=== PATIENT | male | born 1970 | race Caucasian/White ===

== ENCOUNTER 2021-07-16 18:17 | Emergency (ER) | payer OTHER, SELFPAY ==
--- NOTE | ~2021-07-16 | US_ITS ---
EXAMINATION: US VENOUS ULTRASOUND WITH DOPPLER LOWER EXTREMITY, LEFT CLINICAL INFORMATION: Swelling and pain COMPARISON: None TECHNIQUE: Ultrasound of the deep veins is performed from the hip to the calf with compression sonography and color and pulse Doppler assessment. Spectral analysis with color-flow imaging is performed. FINDINGS: There is normal venous compression and respiratory variation and augmentation seen in the left common femoral, superficial femoral and greater saphenous vein. There is noncompressible thrombus visualized in the popliteal vein extending inferiorly into the posterior tibial and peroneal veins. There is mild superficial calf edema. No Aguilar's cyst seen. If the patient's symptoms persist, followup ultrasound in 5 days 7 days might be of value to exclude proximal propagation from a non-visualized calf vein. US/US venous duplex LE LT IMPRESSION: Positive DVT left popliteal vein extending to the posterior tibial and peroneal veins. No Aguilar's cyst seen. There is mild calf edema.
[2021-07-16 18:23] VITALS: BP 165/93; PULSE 84; RESP 18; TEMP 36; O2SAT 97; BMI 34.9
[2021-07-16 18:34] LABS: MANUAL DIFF FLAG NO
[2021-07-16 18:37] LABS: Basophils Percent Auto 0.4 % (0-2); Eosinophils Absolute Auto 0.3 X10*3/uL (0.0-0.4); Eosinophils Percent Auto 3.5 % (0-4); Hematocrit 41.3 % (42.0-52.0); Hemoglobin 14.1 g/dl (14.0-18.0); Imm Gran Abs Auto 0.04 X10*3/uL (0.00-0.03); Imm Gran Pct Auto 0.5 % (0.0-0.4); Lymphocytes Absolute Auto 1.3 X10*3/uL (1.2-4.9); Lymphocytes Percent Auto 16.6 % (20-40); Mean Corpuscular HGB Conc 34.1 g/dl (31.0-36.0); Mean Corpuscular Hemoglobin 31.1 pg (27.0-33.0); Mean Platelet Volume 9.3 fL (9.4-12.4); Monocytes Absolute Auto 0.9 X10*3/uL (0.1-1.2); Neutrophils Absolute Auto 5.3 x10*3/uL (2.0-8.3); Platelet Count 125 X10*3/uL (160-400); Red Blood Count 4.54 X10*6/uL (4.60-5.80); Red Cell Distribution Width 12.8 % (11.0-16.0); White Blood Count 7.8 X10*3/uL (4.8-10.8)
[2021-07-16 18:53] LABS: Anion Gap 13 (12-20); Blood Urea Nitrogen 8 mg/dL (9-16); Calcium 9.6 mg/dL (8.4-10.2); Carbon Dioxide 24 mmol/L (22-29); Chloride 107 mmol/L (96-108); Estimated Glomerular Filt Rate > 60; Glucose Random 87 mg/dL (60-115); Potassium 4.1 mmol/L (3.3-5.1); Sodium 140 mmol/L (135-145)
[2021-07-16 19:33] LABS: INTERNATIONAL NORM RATIO 1.2 (0.9-1.1); Prothrombin Time 14.1 SEC (9.9-13.0)
--- NOTE | 2021-07-16 20:09 | ED_ITS ---
HPI - Extremity Problem General Chief complaint: General Medical Stated complaint: doctor told patient to come in possible blood clot Time Seen by Provider: 07/16/21 18:34 Source: patient Mode of arrival: ambulatory Limitations: no limitations History of Present Illness HPI Narrative: 51-year-old male who denies any medical history presenting to the ED with complaints of left leg pain/swelling/redness for the past 4 days worse today. Reports that he has had increased prolonged sitting. Although denies ever mitchell ving this in the past. Denies any recent travel on a long plane/train/airplane ride, denies history of DVT or PE, recent surgery or procedure, hypercoagulation disorder that he is aware of, PVD disease, history of cancer that he is aware of, history of gout, or recent illness. He denies any dizziness, headaches, chest pain or shortness of breath, dyspnea on exertion, orthopnea, palpitations, paresthesias or any other symptoms complaints or concerns at this time. He was seen at the urgent care prior to arrival and sent here to rule out DVT. MD Complaint: extremity pain and extremity swelling Onset (ago): day(s) (4) Pain Consistency: constant Location: left and lower extremity Quality: burning and aching Radiation: distal Relieving factors: nothing Exacerbating factors: weight bearing, walking and palpation Associated symptoms: denies other symptoms Context: immobilization (Prolonged sitting) Related Data Previous Rx's Medication Instructions Recorded apixaban 5 mg tablet (Eliquis) 5 mg PO BID #90 tab 07/16/21 cephalexin 500 mg capsule 500 mg PO Q6H 10 Days #40 cap 07/16/21 doxycycline hyclate 100 mg tablet 100 mg PO BID 10 Days #20 tab 07/16/21 Allergies Allergy/AdvReac Type Severity Reaction Status Date / Time bupropion [From Wellbutrin] Allergy Mild Insomnia Verified 07/16/21 18:23 Review of Systems Review of Systems: Constitutional : No Weight loss, No Fever, No Chills, No Night Sweats, No Fatigue, No Malaise ENT/Mouth : No Hearing loss, No Ear Pain, No Nasal Congestion, No Sinus Pain, No Hoarseness, No sore throat, No Rhinorrhea, No Swallowing Difficulty Eyes: No Eye Pain, No Swelling, No Redness, No Foreign Body, No Discharge, No Vision Changes Cardiovascular : No Chest Pain, No SOB, No Dyspnea on Exertion, No Orthopnea, No Edema, No Palpitations Respiratory : No Cough, No Sputum, No Wheezing, No Smoke Exposure, No Dyspnea Gastrointestinal : No Nausea, No Vomiting, No Diarrhea, No Constipation, No abdominal Pain, No Hematochezia, No Melena Genitourinary : no irregular bleeding, No Dysuria, No Urinary Frequency, No Hematuria, No Urinary Incontinence, No Urgency, No Flank Pain, No Urinary Flow Changes, No Hesitancy Musculoskeletal : + left lower extremity pain/swelling/redness, No joint pain, No Myalgias Skin : No Skin Lesions, No rash Neuro : No Weakness, No Numbness, No Paresthesias, No Loss of Consciousness, No Dizziness, No Headache Psych : No Anxiety/Panic, No Depression, No SI/HI/AH/VH, No Social Issues, Heme/Lymph: No Bruising, No Bleeding,No Lymphadenopathy Endocrine : No Polyuria, No Polydipsia, No Temperature Intolerance Yes all other systems are reviewed and are negative [facility] Past Medical History Attestation statement: The following information was validated with the patient. Social History Social History Advance Directives: No Advance Directives Information Provided: No Physical Exam Vital Signs: Vital Signs: Last Vital Signs Temp 96.8 F 07/16/21 18:23 Pulse 84 07/16/21 18:23 Resp 18 07/16/21 18:23 BP 165/93 H 07/16/21 18:23 Pulse Ox 97 07/16/21 18:23 BMI result Body Mass Index 34.9 vital signs have been reviewed as normal and appeared to be correct. Blood pressure normal. Heart rate normal. Respiration rate normal. Temperature normal. Oxygen saturation normal. Appearance: Alert. Oriented X3. No acute distress. Head: Normal external exam. Normocephalic. Atraumatic. Eyes: PERRLA. EOMI. Conjunctiva and sclera normal. Eyelids normal. ENT: Pharynx normal. Uvula midline. Moist mucous membranes. No lesions/ulcerations or masses noted on the tongue. Normal voice. No trismus noted. No drooling noted. No muffled voice noted. Neck: Normal inspection. Neck supple. FROM. No adenopathy. Thyroid Normal. No meningeal signs. CVS: Normal heart rate and rhythm. Heart sound normal. Pulses normal throughout. No murmurs/rales/gallops. Respiratory: No respiratory distress. Painless inspiration. Breath sounds normal. No wheezes/rales/rhonchi noted. No accessory muscle usage noted or decreased air movement noted. Abdomen: Soft and nontender. Bowel sounds normal in all 4 quadrants. No distention noted. No organomegaly noted. No visible injury noted. Back: Full range of motion noted. Skin: Skin warm and dry. Normal skin color. Normal skin turgor. No rashes/lesions/lacerations noted. Extremities: Left lower extremity with +2 pitting edema with calf tenderness. With erythema and warm to touch consistent with cellulitis infection. No right lower extremity edema or calf tenderness and there is no signs of infection noted to the right lower extremity. Otherwise not consistent with septic joint. He has full range of motion of the left hip/knee/ankle/foot joint. No streaking noted or foreign bodies. Otherwise all other Extremities exhibit normal range of motion and nontender. Neuro: Oriented X 3. No motor deficit. No sensory deficit. Reflexes normal. Normal steady gait. No focal neuro deficits noted. CN's II-XII intact ken[place] aterally? Vascular: + radial pulses/+ 2 distal pedal pulses/+2 dorsalis pedis b/l. Normal cap refill. No cyanosis noted to upper extremity nails and lower extremity toes nails. Course Course Course Narrative: 51-year-old male who denies any medical history presenting to the ED with complaints of left leg pain/swelling/redness for the past 4 days worse today. Reports that he has had increased prolonged sitting. Although denies ever having this in the past. Denies any recent travel on a long plane/train/airplane ride, denies history of DVT or PE, recent surgery or procedure, hypercoagulation disorder that he is aware of, PVD disease, history of cancer that he is aware of, history of gout, or recent illness. He denies any dizziness, headaches, chest pain or shortness of breath, dyspnea on exertion, orthopnea, palpitations, paresthesias or any other symptoms complaints or concerns at this time. He was seen at the urgent care prior to arrival and sent here to rule out DVT. Labs reviewed and platelet count 125. Otherwise all other labs are within normal limits. Patient had an ultrasound of left lower extremity which revealed positive DVT left popliteal vein extending to the posterior tibial and peroneal veins. No Aguilar cyst seen. There is mild calf edema otherwise no other acute processes. And patient denies any shortness of breath or chest pain therefore less likely that he has a PE I explained to him if he develops any shortness of breath/dyspnea on exertion/orthopnea/palpitations/dizziness/syncope or chest pain and he would need to return for PE evaluation although he denies any of those symptoms. I discussed this case with Dr. Contreras and he reported that the patient can be discharged on Xarelto or Eliquis and follow up with him as an outpatient for further evaluation treatment. Patient understands agrees with this plan will also treat for cellulitis infection. MDM - Extremity (Nontraumatic) Medical Records Attestation: I reviewed the patient's medical records. Lab Data Attestation: I reviewed the patient's lab results. Result diagrams: 07/16/21 18:30 07/16/21 18:30 Labs: Lab Results 07/16/21 07/16/21 07/16/21 Range/Units 18:30 18:30 19:22 WBC 7.8 (4.8-10.8) X10*3/uL RBC 4.54 L (4.60-5.80) X10*6/uL Hgb 14.1 (14.0-18.0) g/dl Hct 41.3 L (42.0-52.0) % MCV 91.0 (80.0-98.0) fL MCH 31.1 (27.0-33.0) pg MCHC 34.1 (31.0-36.0) g/dl RDW 12.8 (11.0-16.0) % Plt Count 125 L (160-400) X10*3/uL MPV 9.3 L (9.4-12.4) fL Immature Gran % (Auto) 0.5 H (0.0-0.4) % Neut % (Auto) 68.0 (45-73) % Lymph % (Auto) 16.6 L (20-40) % Sutton % (Auto) 11.0 (2-11) % Eos % (Auto) 3.5 (0-4) % Baso % (Auto) 0.4 (0-2) % Lymph # (Auto) 1.3 (1.2-4.9) X10*3/uL Sutton # (Auto) 0.9 (0.1-1.2) X10*3/uL Eos # (Auto) 0.3 (0.0-0.4) X10*3/uL Baso # (Auto) 0.0 (0.0-0.2) X10*3/uL Abs Immat Gran (auto) 0.04 H (0.00-0.03) X10*3/uL Absolute Neuts (auto) 5.3 (2.0-8.3) x10*3/uL Absolute Nucleated RBC 0.000 (0.0-0.012) X10*3/uL Nucleated RBC % (auto) 0.0 (0.0-0.2) /100WBC PT 14.1 H (9.9-13.0) SEC INR 1.2 H (0.9-1.1) Sodium 140 (135-145) mmol/L Potassium 4.1 (3.3-5.1) mmol/L Chloride 107 (96-108) mmol/L Carbon Dioxide 24 (22-29) mmol/L Anion Gap 13 (12-20) BUN 8 L (9-16) mg/dL Creatinine 1.05 (0.5-1.4) mg/dL Estim Creat Clear Calc 111.0 Estimated GFR > 60 Random Glucose 87 (60-115) mg/dL Calcium 9.6 (8.4-10.2) mg/dL Imaging Data venous duplex of lle: Attestation: I personally reviewed and interpreted this imaging study as follows: Radiologist's impression: FINDINGS: There is normal venous compression and respiratory variation and augmentation seen in the left common femoral, superficial femoral and greater saphenous vein. There is noncompressible thrombus visualized in the popliteal vein extending inferiorly into the posterior tibial and peroneal veins. There is mild superficial calf edema. No Aguilar's cyst seen. If the patient's symptoms persist, followup ultrasound in 5 days 7 days might be of value to exclude proximal propagation from a non-visualized calf vein. US/US venous duplex LE IMPRESSION: Positive DVT left popliteal vein extending to the posterior tibial and peroneal veins. ? No Aguilar's cyst seen. ? There is mild calf edema. Critical Care Time Critical Care Time Critical Care Time: Yes Total Critical Care Time: 60 Attestation: I personally attest to this time spent taking care of the patient Discharge Plan Discharge Clinical Impression: Acute deep vein thrombosis (DVT) of popliteal vein of left lower extremity, Acute deep vein thrombosis (DVT) of left peroneal vein, Acute deep vein thrombosis (DVT) of left tibial vein, Cellulitis Patient Disposition: Home, Self-Care Instructions: Cellulitis (ED), Deep Vein Thrombosis (ED) Prescriptions: New doxycycline hyclate 100 mg tablet 100 mg PO BID 10 Days Qty: 20 0RF cephalexin 500 mg capsule 500 mg PO Q6H 10 Days Qty: 40 0RF Eliquis 5 mg tablet 5 mg PO BID Qty: 90 0RF Rx Instructions: Patient should take 10 mg p.o. b.i.d. for 7 days then 5 mg b.i.d. and continue for DVT Referrals: Bryce Contreras MD [Physician] - 1 day (CALL TOMORROW TO MAKE A FOLLOW-UP APPOINTMENT WITHIN A WEEK) Print Language: Kittitian
[2021-07-16] MEDS: Apixaban 5 MG TABLET 10 MG PO (20:24)
[2021-07-16] MEDS: cephALEXin 500 MG CAPSULE PO (20:24)
== END 2021-07-16 20:34 | disposition home or self-care (01) ==
PROVIDERS: Nurse Practitioner Family; Emergency Provider Internal Medicine
DX: I82.432 Acute embolism and thrombosis of left popliteal vein (principal); I82.452 Acute embolism and thrombosis of left peroneal vein; I82.442 Acute embolism and thrombosis of left tibial vein; R60.0 Localized edema; R00.2 Palpitations; Z79.899 Other long term (current) drug therapy
CPT/HCPCS: 36415; 80048; 85025; 85610; 93971; 99291